=== PATIENT | female | born 1965 | race African-American/Black ===

== ENCOUNTER 2017-09-05 17:02 | Emergency (ER) | payer MEDICARE ==
[2009-05-23 14:08] VITALS: BMI 25.4
[2017-09-05 18:08] LABS: BASOPHILS 0.2 % (0-2); EOSINOPHILS 0 % (0-7); HEMOGLOBIN 12.2 g/dL (12-16); IMMATURE GRANULOCYTES 0.2 % (0-5); MCV 91.1 fL (80.0-100.0); MEAN PLATELET VOLUME 10.8 fL (7.4-10.4); MONOCYTES 2.7 % (2-11); NEUTROPHILS 87.9 % (40-80); RBC 4.06 10x6/uL (4.00-5.40); RDW 16.2 % (11.5-14.5); WBC 6.6 10x3/uL (4.8-10.8)
[2017-09-05 18:09] LABS: PLATELET COUNT 165 10x3/uL (130-400)
[2017-09-05 18:30] LABS: ALBUMIN 3.9 g/dL (3.4-5.0); ANION GAP 20.4 mmol/L (8-16); BILIRUBIN - TOTAL 0.75 mg/dL (0.2-1.3); CALCIUM 10.3 mg/dL (8.5-10.1); CARBON DIOXIDE 25.8 mmol/L (21.0-32.0); CREATININE - SERUM 5.2 mg/dL (0.6-1.3); POTASSIUM - SERUM 4.2 mmol/L (3.5-5.1); PROTEIN - SERUM 8.3 g/dL (6.4-8.2)
== END 2017-09-05 19:08 | disposition home or self-care (01) ==
LOC: D.ER 17:02
PROVIDERS: Family Medicine
DX: J44.1 Chronic obstructive pulmonary disease with (acute) exacerbation (principal); J20.9 Acute bronchitis, unspecified; F17.200 Nicotine dependence, unspecified, uncomplicated

== ENCOUNTER 2017-12-09 06:37 | Day surgery (SDC) | payer MEDICARE ==
[~2017-12-09] VITALS: Ht 162.6 cm; Wt 61.8 kg
--- NOTE | ~2017-12-09 | OP ---
PATIENT NAME: MARGOTH CELIS MEDICAL RECORD: [id number] :61 LOCATION:PREET ADMISSION DATE: SURGEON: ARETHA PHILLIPS MD DATE OF OPERATION: 12/09/2017 REFERRED BY: Dr. 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 POSTOPERATIVE DIAGNOSES: End-stage renal disease, on chronic hemodialysis with a right brachiocephalic arteriovenous fistula, dependence on hemodialysis, and venous stenosis of the cephalic arch at the confluence with the axillary and subclavian veins. OPERATION PERFORMED: Right upper extremity fistulogram and balloon angioplasty of CA axillary subclavian confluence stenosis and treatment with Lutonix drug-coated balloon therapy. SURGEON: Aretha Phillips MD ANESTHESIA: General with LMA per PAPER HANDLER. PREOPERATIVE NOTE: Ms. Celis is a 52-year-old female on chronic hemodialysis with a patrick right brachiocephalic AV fistula. She has a recurring severe stenosis of the cephalic arch at the junction with the axillary and subclavian vein. This has been treated repeatedly with balloon angioplasty and attempting to avoid stenting, I brought her here to the hospital today about 3 months since her last procedure. I plan to do another angiogram and if, I am sure, there is a recurrent stenosis in the CA, then I plan to go ahead with a balloon angioplasty and then drug-coated balloon treatment. At a later date, she may also benefit from a banding procedure to restrict flow. Under a general anesthetic, the patient was placed in supine position, prepped and draped in a sterile manner. The cephalic vein was accessed percutaneously with micropuncture technique in the upper third of the arm and a subtracted angiogram performed, which confirmed slow flow in the fistula and a very tight 90% or 95% stenosis at the junction of the cephalic arch and axillary subclavian veins. A 0.035 Glidewire was passed and the micropuncture catheter exchanged for a 9-Salvadorean introducer. The area of stenosis was dilated first with a 10 x 40 mm angioplasty balloon, which achieved 95% effacement and was then dilated with a 12 mm diameter x 40 mm long [place] angioplasty balloon, which achieved 98% effacement. Repeated contrast injections revealed about a 10% residual elastic recoil type stenosis. I then treated the area in the cephalic arch with a Lutonix balloon 12 x 40 mm in length according to protocol. Repeated contrast injections revealed significant improvement with still some persistent stenosis. The introducer sheath was removed. Hemostasis obtained with a 4-0 Prolene [id number]-gr-[id number] suture and period of gentle pressure. At the completion of the procedure, the fistula was much less tense and hyperpulsatile much less than it was preop. The patient was awakened and taken to the recovery room. Blood loss during the OPERATIVE REPORT [id number] MARGOTH CELIS procedure was less than 5 cc. None replaced. All sponges, instruments and needles were accounted for. No drain was used and no surgical specimen submitted for histopathology. PLAN: The patient will resume her usual routine dialysis schedule starting tomorrow. She will continue on her same medications and renal diet. I will plan to follow up with her in my office in 3-4 weeks. I had actually planned to bring her back to the operating room in 4-6 weeks, I believe for a Shields banding of her AV fistula as I, at this point, do not have confidence that her cephalic arch stenosis will not recur and lead to a complete failure of her fistula. TRANSINT:[id number] Voice Confirmation ID: [id number] DOCUMENT ID: [id number] ARETHA PHILLIPS MD at 1054 CC: LORENA MONTOYA MD [id number] DICTATION DATE: 12/09/17 1204 TRIP FOLLOWER: 12/09/17 1217 [facility] 12/09/17 [id number] [place] [address]
[2017-12-09 07:05] LABS: BASOPHILS 0.3 % (0-2); EOSINOPHILS 1.9 % (0-7); HEMATOCRIT 33.6 % (36.0-48.0); HEMOGLOBIN 10.9 g/dL (12-16); IMMATURE GRANULOCYTES 0.3 % (0-5); LYMPHOCYTES 11.6 % (15-50); MCH 31.2 pg (26.0-34.0); MCHC 32.4 g/dL (31.0-37.0); MCV 96.3 fL (80.0-100.0); MEAN PLATELET VOLUME 10.5 fL (7.4-10.4); MONOCYTES 9.3 % (2-11); NEUTROPHILS 76.6 % (40-80); PLATELET COUNT 174 10x3/uL (130-400); RBC 3.49 10x6/uL (4.00-5.40); RDW 16.3 % (11.5-14.5); WBC 11.4 10x3/uL (4.8-10.8)
[2017-12-09 07:14] LABS: ANION GAP 12.4 mmol/L (8-16); CALCIUM 9.6 mg/dL (8.5-10.1); CARBON DIOXIDE 28.4 mmol/L (21.0-32.0); CREATININE - SERUM 5.6 mg/dL (0.6-1.3); POTASSIUM - SERUM 4.8 mmol/L (3.5-5.1)
[2017-12-09 07:21] LABS: APTT 25.7 SECONDS (22.8-39.4); INR 0.91 (0.85-1.17); PROTIME 11.9 SECONDS (11.6-15.0)
[2017-12-09] MEDS ORDERED: CATAPRES0.2 MG PO (08:52)
[2017-12-09] MEDS ORDERED: NORVASC10 MG PO (08:53)
[2017-12-09] MEDS ORDERED: COZAAR100 MG PO (08:53)
[2017-12-09] MEDS ORDERED: HYDRALAZINE HCL25 MG PO (08:53)
[2017-12-09] MEDS ORDERED: RENVELA800 MG PO (08:54)
[2017-12-09] MEDS ORDERED: NORMODYNE / TR300 MG PO (08:55)
[2017-12-09] MEDS ORDERED: RESTORIL15 MG (08:56)
[2017-12-09 09:33] VITALS: BP 195/101; Ht 162.6 cm; Wt 61.8 kg
== END 2017-12-09 13:30 | disposition home or self-care (01) ==
LOC: D.OPS 06:37
PROVIDERS: Surgery
DX: T82.590A Other mechanical complication of surgically created arteriovenous fistula, initial encounter (principal); T82.858A Stenosis of other vascular prosthetic devices, implants and grafts, initial encounter; I87.1 Compression of vein; Z01.812 Encounter for preprocedural laboratory examination; N18.6 End stage renal disease; Z99.2 Dependence on renal dialysis

== ENCOUNTER 2018-01-20 06:35 | Day surgery (SDC) | payer MEDICARE ==
[~2018-01-20] VITALS: Ht 162.6 cm; Wt 62.6 kg
--- NOTE | ~2018-01-20 | OP ---
PATIENT NAME: MARGOTH CELIS MEDICAL RECORD: [id number] :61 LOCATION:PREET ADMISSION DATE: SURGEON: ARETHA PHILLIPS MD DATE OF OPERATION: 01/20/2018 REFERRED BY: Lorena Montoya MD PREOPERATIVE DIAGNOSIS: Mechanical complications of right arm AV fistula and central vein stenosis. OPERATION PERFORMED: Fistulogram and balloon angioplasty of severe recurrent stricture at the junction of the cephalic arch and axillary vein to form the subclavian vein and also open Shields banding. SURGEON: Aretha Phillips MD ANESTHESIA: General per PART TIME RECEPTIONIST. PREOPERATIVE NOTE: Ms. Celis is a very nice 52-year-old -[place] female from [place]. She has end-stage renal disease and is on chronic hemodialysis with a right arm AV fistula, brachiocephalic. It is a very large fistula, aneurysmal, and hyper pulsatile due to a recurring central stenosis. She was recently treated with balloon angioplasty and drug-coated balloon therapy, but has recurrent problems already at about a month. She is brought to the operating room at this time with plans to band her fistula in hopes of reducing inflow pressure and flow volumes will lessen the pressure to cause stricturing. Under anesthesia, the patient was prepped and draped in sterile manner. The fistula was accessed in the upper third of the arm and contrast injections demonstrated a severe, recurrent stenosis at the junction of the cephalic arch and the axillary subclavian veins. This was subsequently treated with a 12 mm diameter Bozman high pressure balloon and followup angiography demonstrated a satisfactory result with little persistent stenosis though some irregularity present. The fistula was then accessed in a retrograde peripherally oriented direction with micropuncture technique just above the antecubital space and repeated contrast injections visualized the body of the fistula, which had no abnormalities and I was able to visualize the large runoff vessel in the forearm, which was subsequently exposed with the incision just beneath the antecubital space and ligated with 2-0 silk. I was able to advance a guidewire across the arterial anastomosis and into the distal brachial and radial arteries, but I was unable to manipulate the guidewire to cross proximally into the brachial artery in the arm. I did do pullback angiography and identified the arterial anastomosis and then made an incision and exposed the aneurysmal section of vein just above that arterial anastomosis for banding. I inserted a 4 mm diameter angioplasty balloon and put two 2-0 Prolene ties around the fistula with the balloon fully inflated and pressure was held at the nominal level. These 2 Prolene sutures were about 2 cm apart. This resulted in reduced pulsation or hyper pulsatility in the fistula, which was much softer. The hardware was removed. Hemostasis obtained at the 2 puncture sites with 4-0 Prolene oebzpn-pa-[id number] sutures. The small incision through which the collateral vein was ligated was closed with interrupted inverted 3-0 Vicryl and the larger banding incision was closed with interrupted inverted 3-0 Vicryl and running intracuticular 4-0 Stratafix. The wounds were further sealed and closed with Dermabond glue and dressed with Maxorb Ag, Tegaderm, and Cavilon skin prep. OPERATIVE REPORT [id number] MARGOTH CELIS The patient at that point was awakened and taken to the recovery room in satisfactory condition. I plan to see her back in my office in about 2 weeks. In the meantime, she will continue her routine dialysis schedule, same meds, diet, activities, etc. I will plan to repeat a fistulogram in a few weeks or month. It is very likely that she is yet going to require a stent in the cephalic arch. This would, I think, need to be 12 perhaps 14 mm diameter balloon expandable stent. All sponges, instruments and needles were accounted for. No drain was used and no surgical specimen submitted for histopathology. TRANSINT:[id number] Voice Confirmation ID: [id number] DOCUMENT ID: [id number] ARETHA PHILLIPS MD at 1645 CC: LORENA MONTOYA MD [id number] DICTATION DATE: 01/20/18 1314 EDUCATION PROGRAM SPECIALIST: 01/20/[address] [facility] 01/20/18 [facility] [address] [place] [address]
[~2018-01-20 06:35] MED LIST: CATAPRES0.2 MG PO; COZAAR100 MG PO; HYDRALAZINE HCL25 MG PO; NORMODYNE / TR300 MG PO; NORVASC10 MG PO; RENVELA800 MG PO; RESTORIL15 MG
[2018-01-20 06:53] LABS: BASOPHILS 0 % (0-2); EOSINOPHILS 0 % (0-7); HEMATOCRIT 35.8 % (36.0-48.0); HEMOGLOBIN 11.5 g/dL (12-16); IMMATURE GRANULOCYTES 0.2 % (0-5); LYMPHOCYTES 6.2 % (15-50); MCH 30.8 pg (26.0-34.0); MCHC 32.1 g/dL (31.0-37.0); MEAN PLATELET VOLUME 10.3 fL (7.4-10.4); MONOCYTES 1.1 % (2-11); NEUTROPHILS 92.5 % (40-80); PLATELET COUNT 186 10x3/uL (130-400); RBC 3.73 10x6/uL (4.00-5.40); WBC 8.2 10x3/uL (4.8-10.8)
[2018-01-20 07:07] LABS: ANION GAP 12.9 mmol/L (8-16); CALCIUM 10.1 mg/dL (8.5-10.1); CARBON DIOXIDE 28.1 mmol/L (21.0-32.0); CREATININE - SERUM 5.7 mg/dL (0.6-1.3)
[2018-01-20 07:20] LABS: INR 0.93 (0.85-1.17); PROTIME 12.1 SECONDS (11.6-15.0)
[2018-01-20] MEDS ORDERED: HYDRALAZINE HCL50 MG PO (08:17)
[2018-01-20] MEDS ORDERED: PREDNISONE50 MG PO (08:19)
[2018-01-20 08:28] VITALS: BP 184/97; Ht 162.6 cm; Wt 62.6 kg
[2018-01-20] MEDS ORDERED: ULTRAM50 MG PO (12:23)
== END 2018-01-20 14:35 | disposition home or self-care (01) ==
LOC: D.OPS 06:35
PROVIDERS: Surgery
DX: T82.590A Other mechanical complication of surgically created arteriovenous fistula, initial encounter (principal); T82.858A Stenosis of other vascular prosthetic devices, implants and grafts, initial encounter; N18.6 End stage renal disease; Z99.2 Dependence on renal dialysis; Z01.812 Encounter for preprocedural laboratory examination

== ENCOUNTER 2018-07-14 07:00 | Day surgery (SDC) | payer MEDICARE ==
[~2018-07-14] VITALS: Ht 162.6 cm; Wt 56.7 kg
[~2018-07-14 07:00] MED LIST changes: +HYDRALAZINE HCL50 MG PO; +PREDNISONE50 MG PO; +ULTRAM50 MG PO
[2018-07-14 07:31] LABS: BASOPHILS 0.2 % (0-2); EOSINOPHILS 1.7 % (0-7); HEMATOCRIT 34.6 % (36.0-48.0); HEMOGLOBIN 11.2 g/dL (12-16); IMMATURE GRANULOCYTES 0.2 % (0-5); LYMPHOCYTES 7.8 % (15-50); MCH 29.6 pg (26.0-34.0); MCHC 32.4 g/dL (31.0-37.0); MCV 91.5 fL (80.0-100.0); MEAN PLATELET VOLUME 10.6 fL (7.4-10.4); MONOCYTES 7.6 % (2-11); NEUTROPHILS 82.5 % (40-80); PLATELET COUNT 219 10x3/uL (130-400); RBC 3.78 10x6/uL (4.00-5.40); RDW 16.2 % (11.5-14.5); WBC 12.6 10x3/uL (4.8-10.8)
[2018-07-14 07:46] LABS: HCG SERUM NEGATIVE (NEGATIVE)
[2018-07-14 07:50] LABS: ANION GAP 19.7 mmol/L (8-16); CALCIUM 9.8 mg/dL (8.5-10.1); CARBON DIOXIDE 20.1 mmol/L (21.0-32.0); CREATININE - SERUM 8.2 mg/dL (0.6-1.3); POTASSIUM - SERUM 4.8 mmol/L (3.5-5.1)
[2018-07-14] MEDS ORDERED: FUROSEMIDE40 MG PO (08:22)
[2018-07-14] MEDS ORDERED: CYPROHEPTAD2 MG/5 ML PO (08:22)
[2018-07-14 08:41] VITALS: BP 187/14; Ht 162.6 cm; Wt 56.7 kg
--- NOTE | 2018-07-14 16:40 | OP ---
PATIENT NAME: MARGOTH CELIS MEDICAL RECORD: [id number] :61 LOCATION:D.OPS ADMISSION DATE: SURGEON: ARETHA PHILLIPS MD DATE OF OPERATION: 07/14/2018 PREOPERATIVE DIAGNOSIS: Personal history of colon polyps with last colonoscopy and polypectomy 25 years ago. REFERRING PHYSICIAN: Dr. Amaya. SHOP FITTER: Dr. Montoya. OPERATION PERFORMED: Colonoscopy to the hepatic flexure. SURGEON: Aretha Phillips MD ANESTHESIA: TIVA per RANCH COOK. FINDINGS: Extreme spasm with actually fair prep and repeated loop formation in the pelvis and inability to intubate the right colon. PREOPERATIVE NOTE: Ms. Celis is a 52-year-old -[place]ian female from [place]. She has end-stage renal disease and is on chronic hemodialysis. She also has a history of colon polyps with colonoscopy and polypectomy 25 years ago and no followup. She is at this time asymptomatic. She has had no blood per rectum, etc. There is no family history of colorectal cancer or other neoplasms. She has had a standard bowel prep and is brought to the outpatient department this morning for colonoscopy. DESCRIPTION OF PROCEDURE: Under TIVA per RANCH COOK, the patient was placed in lateral decubitus position. A digital rectal exam performed, which was normal. The Olympus colonoscope was then inserted and slowly advanced to the hepatic flexure. There was a great deal of spasm throughout the procedure and the scope tended to loop in the pelvis and progress was quite slow. I was unable to intubate the right colon. The examination to the hepatic flexure was normal or negative, although the examination was compromised by the extensive colonic spasm, which was not relieved by administration of IV glucagon. No lesions were seen, however. After removal of the scope, the patient will be observed in the outpatient department and be discharged to home. We will have her scheduled to return as an outpatient for an air contrast barium enema on a nondialysis day next week. She dialyzes on Tuesdays and Saturdays. TRANSINT:[id number] Voice Confirmation ID: [id number] DOCUMENT ID: [id number] ARETHA PHILLIPS MD at 1640 CC: LORENA MONTOYA MD and JAY AMAYA MD [id number] DICTATION DATE: 07/14/18 1038 HOSPITALITY WORKERS: 07/14/18 1206 [facility] [place] 07/14/18 [facility] [address] [facility] [place] [address]
== END 2018-07-14 11:40 | disposition home or self-care (01) ==
LOC: D.OPS 07:00
PROVIDERS: Anesthesiology; ATTEND Surgery
DX: K58.9 Irritable bowel syndrome, unspecified (principal); Z86.010 Personal history of colon polyps; N18.6 End stage renal disease; Z99.2 Dependence on renal dialysis; Z01.812 Encounter for preprocedural laboratory examination

== ENCOUNTER → 2018-07-17 07:54 | Outpatient (CLI) | payer MEDICARE ==
[2018-07-14 08:41] VITALS: BMI 21.5
[~2018-07-17 07:54] MED LIST changes: +CYPROHEPTAD2 MG/5 ML PO; +FUROSEMIDE40 MG PO
== END | disposition home or self-care (01) ==
LOC: D.RAD 07:54
PROVIDERS: ATTEND Surgery
DX: Z53.9 Procedure and treatment not carried out, unspecified reason (principal)

== ENCOUNTER 2019-03-14 07:34 | Day surgery (SDC) | payer MEDICARE, OTHER ==
[~2019-03-14] VITALS: Ht 160 cm; Wt 58.2 kg
--- NOTE | ~2019-03-14 | OP ---
PATIENT NAME: MARGOTH CELIS MEDICAL RECORD: [id number] :61 LOCATION:PREET ADMISSION DATE: SURGEON: ARETHA PHILLIPS MD DATE OF OPERATION: 03/14/2019 REFERRING PHYSICIAN: Dr. Peoples. PREOPERATIVE DIAGNOSES: Partially thrombosed right brachiocephalic arterial venous fistula secondary to calcified stenoses at points of last year's Shields banding and recurrent 70% stenosis of the cephalic arch at the confluence with the axillary vein. POSTOPERATIVE DIAGNOSES: Stenotic partially thrombosed nonfunctioning right arterial venous fistula and stenosis of carotid arch. OPERATION PERFORMED: Open revision by excision of stenosis and end-to-end anastomosis in the JA segment including endarterectomy of calcified stenosis also in the JA segment with primary suture closure. Also, a fistulogram and balloon angioplasty of the cephalic arch stenosis with a 12-mm [place] balloon going from 70% to 0% stenosis. ANESTHESIA: General with LMA per WHITE WORK CLEANER. PREOPERATIVE NOTE: Ms. Celis is a very nice 53-year-old -German female with end-stage renal disease on chronic hemodialysis in [place] at the [facility]. She has been dialyzing for some time now with a right brachiocephalic arterial venous fistula, which is now quite aneurysmal and palpably calcified in areas. Last year, I did a Shields banding procedure and dilated a recurring cephalic arch stenosis. The banding was done in hopes that reducing flow and shear forces might decrease the rapidity with which her stenosis was recurring. I believe she may have had a procedure done as an outpatient at [facility] since then, but in general, I think we should be pleased with her results to date from that banding procedure. However, now she is essentially clotted, her fistula has just a little tiny bit of flow in it palpably and audibly and she is now brought to the operating room to have this revised and thrombectomized. DESCRIPTION OF PROCEDURE: With the patient in supine position, she was prepped and draped in a sterile manner. An oblique incision was made over the JA segment of her brachiocephalic fistula and the JA segment dissected from surrounding structures and the brachial artery dissected and controlled above and below the arterial anastomosis with doubly looped Silastic tapes. There was severe stenosis in the JA segment at the site of the prior Shields banding with calcification in the wall of the fistula at this level and several other levels. I then actually performed a fistulogram with a micropuncture needle inserted into the proximal cephalic vein and demonstrated that there was a severe, recurrent thrombosis in the cephalic arch about 70%. A larger introducer was placed and a 12-mm [place] balloon was used to dilate the cephalic arch and this was successful in achieving full effacement, dilating a 70% diameter stenosis and subsequent contrast injection revealed 0% residual. There was no other central venous stenosis present and retrograde filling of the fistula revealed no other severe stenoses other than in the JA segment. The patient was systemically heparinized. The fistula was clamped and the stenotic JA segment was excised and preparations made for end-to-end OPERATIVE REPORT [id number] MARGOTH CELIS anastomosis. There was, however, severe calcific plaque remaining in the fistula. This required fairly extensive thromboendarterectomy in order to do the end-to-end anastomosis without having to do any kind of interposition graft. Eventually, the end-to-end anastomosis was done with running 6-0 Prolene after removing thrombus from the fistula and repeating the fistulogram to demonstrate no significant occlusions. Contrast was injected into the brachial artery and there was no evidence of any brachial artery occlusions or embolization. After completing the anastomosis, it was treated with BioGlue and hemostasis was excellent. The wound was irrigated with Ancef and gentamicin solution. The introducer sheath was removed and hemostasis obtained at that point medially near the shoulder with a kpjrfh-he-bzccd 4-0 Prolene suture. The segment that was excised from the JA did include both of the Prolene ligatures, which had been used to do the Shields banding. The flow now in this fistula is quite high. The wound was closed with interrupted inverted 3-0 Vicryl and running intracuticular 4-0 Monocryl and Dermabond glue and a dressing of Maxorb Ag, Tegaderm, and Cavilon skin prep was applied. The patient tolerated this procedure quite well. She was awakened and taken to the recovery room in stable condition. Blood loss during the operation perhaps 150 cc. None was replaced. Blood loss was heavier than usual due to the necessity to perform the thrombectomy of the fistula. No drain was used. All sponges, instruments and needles were accounted for and no surgical specimen was submitted for histopathology. PLAN: The patient will be observed in the hospital overnight. It is important that we watch for signs of bleeding. She is to have dialysis done here at [place] and if all goes well, then possibly home after that. There is now enough usable AV fistula that I did not think we needed to implant a catheter, but I would like to wait 6 weeks before accessing the AV fistula under the incisions. TRANSINT:[id number] Voice Confirmation ID: [id number] DOCUMENT ID: [id number] cc: ARETHA Stewart MD CC: BRITTANY PEOPLES [id number] DICTATION DATE: 03/27/19 1409 CROP QUANTITATIVE GENETICIST: 03/27/19 1522 [facility] [place] 03/15/19 [facility] [address] [place] [address]
[2019-03-14 07:54] LABS: BASOPHILS 0.1 % (0-2); EOSINOPHILS 1.3 % (0-7); HEMATOCRIT 30.5 % (36.0-48.0); HEMOGLOBIN 9.5 g/dL (12-16); IMMATURE GRANULOCYTES 0.2 % (0-5); LYMPHOCYTES 9.7 % (15-50); MCH 30.2 pg (26.0-34.0); MCHC 31.1 g/dL (31.0-37.0); MCV 96.8 fL (80.0-100.0); MEAN PLATELET VOLUME 10.5 fL (7.4-10.4); MONOCYTES 8.1 % (2-11); NEUTROPHILS 80.6 % (40-80); PLATELET COUNT 171 10x3/uL (130-400); RBC 3.15 10x6/uL (4.00-5.40); RDW 17.3 % (11.5-14.5); WBC 11.1 10x3/uL (4.8-10.8)
[2019-03-14] MEDS ORDERED: BENADRYL25 MG PO (08:25)
[2019-03-14] MEDS ORDERED: ELIQUIS2.5 MG PO (08:26)
[2019-03-14] MEDS ORDERED: METOPROLOL TART50 MG PO (08:26)
[2019-03-14 08:31] LABS: ANION GAP 19.8 mmol/L (8-16); CALCIUM 9.3 mg/dL (8.5-10.1); CARBON DIOXIDE 19.3 mmol/L (21.0-32.0); CREATININE - SERUM 8.8 mg/dL (0.6-1.3); INR 1.03 (0.85-1.17); POTASSIUM - SERUM 5.1 mmol/L (3.5-5.1)
[2019-03-14 08:37] VITALS: BP 137/72; BMI 21.3
--- NOTE | 2019-03-14 15:48 | NUR ---
SWITCHED TO PHASE 2 PROTOCOL, VS NOW Q15
[2019-03-14 16:39] VITALS: BP 135/72
--- NOTE | 2019-03-14 17:37 | NUR ---
AUTO TOP MECHANIC RENAL PHYSICIAN PAGED PER NURSING MESSAGE.
[2019-03-14 18:19] VITALS: BP 135/72; Ht 160 cm; Wt 58.2 kg
--- NOTE | 2019-03-14 19:05 | NUR ---
PT RESTING IN BED ALERT AND ORIENTED X4. PT FAMILY AT BEDSIDE. NO S/S OF DISTRESS AT THIS TIME. BED LOW CALL LIGHT WITHIN REACH. WILL CONTINUE TO MONITOR.
[2019-03-14 20:00] VITALS: BP 142/78
[2019-03-15] VITALS: BP 133/75
--- NOTE | 2019-03-15 02:19 | NUR ---
I have reviewed this patient and I concur with the Shift Assessment completed by the Licensed Practical Nurse today this shift.
[2019-03-15 04:00] VITALS: BP 154/81
[2019-03-15] MEDS ORDERED: NORCO-7.5 PO (08:46)
[2019-03-15 09:25] VITALS: BP 161/87
== END 2019-03-15 15:09 | disposition home or self-care (01) ==
LOC: D.OPS 07:34 → D.M2 16:04 → D.OPS 03-15 15:09
PROVIDERS: ATTEND Internal Medicine Nephrology
DX: N18.6 End stage renal disease (principal); Z99.2 Dependence on renal dialysis; I12.0 Hypertensive chronic kidney disease with stage 5 chronic kidney disease or end stage renal disease; I65.29 Occlusion and stenosis of unspecified carotid artery

== ENCOUNTER → 2019-10-29 11:14 | Outpatient (CLI) | payer MEDICARE, OTHER ==
[2019-03-14 18:19] VITALS: BMI 22.7
[~2019-10-29 11:14] MED LIST changes: +BENADRYL25 MG PO; +ELIQUIS2.5 MG PO; +METOPROLOL TART50 MG PO; +NORCO-7.5 PO
== END | disposition home or self-care (01) ==
LOC: D.CT 11:14
PROVIDERS: ATTEND Internal Medicine Nephrology
DX: I70.213 Atherosclerosis of native arteries of extremities with intermittent claudication, bilateral legs (principal)